=== PATIENT | female | born 1995 | race Caucasian/White ===

== ENCOUNTER 2019-10-11 19:07 | Emergency (ER) | payer OTHER ==
[~2019-10-11] VITALS: Ht 182.9 cm; Wt 71.2 kg
[2019-10-11 19:13] VITALS: BP 112/73
--- NOTE | 2019-10-11 19:18 | NUR ---
INFLUENZA SWAB COLLECTED
--- NOTE | 2019-10-11 19:38 | NUR ---
PT TAKEN TO BED 4
--- NOTE | 2019-10-11 19:40 | NUR ---
63 YEAR OLD FEMALE COMPLAINS OF EPIGASTRIC PAIN THAT RADIATES TO THE BACK 6/10 SQUEEZING PAIN. PATIENT STATES PAIN STARTED IN MORNING AND SHE HAS VOMITED EARLIER, BUT NO NAUSEA CURRENTLY. PT COMPLAINS OF CONSTIPATION X 3 DAYS. PATIENT AOX4, BREATHING EVEN AND UNLABORED, SKIN WARM AND DRY. BED IN LOWEST POSITION, LOCKED, BED RAIL UPX1. PLACED ON MONTIOR. PMH - AFIB, DM2, CHF, COPD, UTI ALLERGIES - NKA
[2019-10-11] MEDS ORDERED: ACETAMINOPHEN EXTRA STRENGTH 500 MG TAB PO ONE (19:50)
[2019-10-11] MEDS ORDERED: NACL 0.9% 1,000 ML IV ONE (19:50)
--- NOTE | 2019-10-11 19:54 | NUR ---
BERHANE ALMENDAREZ WANTS TO HOLD OFF ON EKG UNTIL FLUIDS AND TYLENOL GIVEN
--- NOTE | 2019-10-11 20:26 | NUR ---
X-Ray at bedside.
--- NOTE | 2019-10-11 20:36 | NUR ---
PT STILL UNABLE TO URINATE
[2019-10-11] MEDS ORDERED: KETOROLAC 30 MG/ML VIAL IVP ONE (21:20)
[2019-10-11] MEDS ORDERED: NACL 0.9% 500 ML IV ONE (21:20)
[2019-10-11] MEDS ORDERED: KETOROLAC 30 MG/ML VIAL ONE (21:26)
--- NOTE | 2019-10-11 21:31 | NUR ---
TORADOL AND 0.9 NACL ADMINISTERED ORDERED
--- NOTE | 2019-10-11 22:17 | NUR ---
NADR FROM TORADOL AND 0.9 NS. FLUIDS FINISHED.
[2019-10-11 22:25] VITALS: BP 96/57
--- NOTE | 2019-10-11 22:25 | NUR ---
Patient discharged with v/s stable. Written and verbal after care instructions given and explained. Patient alert, oriented and verbalized understanding of instructions. Ambulatory with steady gait. All questions addressed prior to discharge. ID band removed. Patient advised to follow up with PMD. Rx of TAMIFLU, PROMETHAZINE, MOTRIN 600 MG given. Patient educated on indication of medication including possible reaction and side effects. Opportunity to ask questions provided and answered.
== END 2019-10-11 22:25 | disposition home or self-care (01) ==
LOC: MED 19:07
DX: B34.9 Viral infection, unspecified (principal)
CPT/HCPCS: 71045; 81025; 87804; 93005; 99285; J1885; J7030; Q0092